=== PATIENT | male | born 1960 | race Caucasian/White ===

== ENCOUNTER 2018-06-20 20:56 | Emergency (ER) | payer OTHER ==
[~2018-06-20] VITALS: Ht 167.6 cm; Wt 74.8 kg
[2018-06-20 21:58] VITALS: Ht 167.6 cm; Wt 74.8 kg
[2018-06-21 01:44] VITALS: BP 116/67
== END 2018-06-21 01:52 | disposition home or self-care (01) ==
LOC: ED 20:56
DX: S20.212A Contusion of left front wall of thorax, initial encounter (principal); E11.9 Type 2 diabetes mellitus without complications; V18.4XXA Pedal cycle driver injured in noncollision transport accident in traffic accident, initial encounter; Y93.I9 Activity, other involving external motion; Y92.413 State road as the place of occurrence of the external cause; Y99.8 Other external cause status
CPT/HCPCS: 94150; J1885